=== PATIENT | female | born 1995 | race Caucasian/White ===

== ENCOUNTER 2016-06-14 21:52 | Emergency (ER) | payer OTHER ==
[2016-06-14 22:07] VITALS: BP 119/84
== END 2016-06-14 23:32 | disposition left against medical advice (07) ==
LOC: ED 21:52
DX: Z53.21 Procedure and treatment not carried out due to patient leaving prior to being seen by health care provider (principal)

== ENCOUNTER 2016-06-15 16:16 | Emergency (ER) | payer OTHER ==
[~2016-06-15] VITALS: Ht 154.9 cm; Wt 62.1 kg
[2016-06-15 18:38] VITALS: BP 127/79
== END 2016-06-15 18:38 | disposition home or self-care (01) ==
LOC: ED 16:16
DX: N39.0 Urinary tract infection, site not specified (principal); J45.909 Unspecified asthma, uncomplicated; Z88.0 Allergy status to penicillin
CPT/HCPCS: J1885